=== PATIENT | female | born 1985 | race Caucasian/White ===

== ENCOUNTER 2018-02-08 15:52 | Emergency (ER) | payer MEDICAID ==
[~2018-02-08] VITALS: Ht 165.1 cm; Wt 48.1 kg
[2018-02-08 16:19] VITALS: BP 115/74
[2018-02-08] MEDS ORDERED: AZIT-57 PO (16:35)
== END 2018-02-08 16:43 | disposition home or self-care (01) ==
LOC: ER 15:53
DX: H92.02 Otalgia, left ear (principal); J02.9 Acute pharyngitis, unspecified; F12.10 Cannabis abuse, uncomplicated
CPT/HCPCS: 99283

== ENCOUNTER 2021-01-07 12:16 | Emergency (ER) | payer MEDICAID, OTHER ==
[~2021-01-07] VITALS: Ht 167.6 cm; Wt 47.7 kg
[2021-01-07] MEDS ORDERED: dexamethasone sod phosphate 10mg/ml inj IV STA (12:31)
[2021-01-07] MEDS ORDERED: metoclopramide 5 mg/ml inj IV ONE (12:35)
[2021-01-07] MEDS ORDERED: LORazepam 2 mg/ml vial IV ONE (12:35)
[2021-01-07] MEDS ORDERED: normal saline 1000ML IV soln IVB ONE (12:35)
[2021-01-07] MEDS ORDERED: ketorolac trometh. 30mg/ml inj. IV ONE (13:00)
[2021-01-07] MEDS ORDERED: CYCL-1 PO (13:21)
[2021-01-07] MEDS ORDERED: ONDA4TAB6 PO (13:21)
[2021-01-07 14:25] VITALS: BP 122/54
== END 2021-01-07 14:27 | disposition home or self-care (01) ==
LOC: ER 12:16
DX: S13.4XXA Sprain of ligaments of cervical spine, initial encounter (principal); F07.81 Postconcussional syndrome; G43.909 Migraine, unspecified, not intractable, without status migrainosus; H57.11 Ocular pain, right eye; F12.90 Cannabis use, unspecified, uncomplicated; Z87.440 Personal history of urinary (tract) infections; Z79.899 Other long term (current) drug therapy; V87.7XXA Person injured in collision between other specified motor vehicles (traffic), initial encounter; Y93.89 Activity, other specified; Y92.89 Other specified places as the place of occurrence of the external cause; Y99.8 Other external cause status
CPT/HCPCS: 70450; 96361; 96374; 96375; 99284; J1100; J1885; J2060; J2765; J7030

== ENCOUNTER 2021-02-15 16:10 | Emergency (ER) | payer BC, OTHER ==
[~2021-02-15] VITALS: Ht 167.6 cm; Wt 47.7 kg
[~2021-02-15 16:10] MED LIST: CYCL-1 PO; ONDA4TAB6 PO
[2021-02-15] MEDS ORDERED: ondansetron 4mg rapidly disintigrating tab PO ONE (16:55)
[2021-02-15] MEDS ORDERED: lactulose 20gm/30ml cup PO ONE (16:55)
[2021-02-15] MEDS ORDERED: magnesium citrate 296ml oral solution PO ONE (16:55)
[2021-02-15 17:18] LABS: BASOPHILS # (AUTO) 0.1 X10'3 (0-0.2); BASOPHILS % (AUTO) 0.9 % (0-1); EOSINOPHILS # (AUTO) 0.2 X10'3 (0-0.9); EOSINOPHILS % (AUTO) 3.8 % (0-6); HEMATOCRIT 36.4 % (35.0-45.0); HEMOGLOBIN 12.1 g/dl (12.0-16.0); LYMPHOCYTES % (AUTO) 31.7 % (21-51); MEAN CORPUSCULAR HEMOGLOBIN 29.3 PG (27.0-31.0); MEAN CORPUSCULAR HGB CONC 33.1 g/dL (33.0-36.5); MEAN CORPUSCULAR VOLUME 88.4 FL (78-98); MEAN PLATELET VOLUME 8.5 FL (7.4-10.4); MONOCYTES # (AUTO) 0.5 X10'3 (0-0.9); MONOCYTES % (AUTO) 7.8 % (2-12); NEUTROPHILS # (AUTO) 3.5 X10'3 (1.8-7.7); NEUTROPHILS % (AUTO) 55.8 % (42-75); PLATELET COUNT 216 X10'3 (140-440); RED BLOOD COUNT 4.12 X10'6 (4.20-5.60); RED CELL DISTRIBUTION WIDTH 13.6 % (11.5-14.5); WHITE BLOOD COUNT 6.2 X10'3 (4.5-11.0)
[2021-02-15 17:26] LABS: ALANINE AMINOTRANSFERASE 21 U/L (12-78); ALBUMIN 4.4 G/DL (3.4-5.0); ALBUMIN/GLOBULIN RATIO 1.3 (1.1-1.5); ALKALINE PHOSPHATASE 51 IU/L (46-116); ANION GAP 10 (8-16); ASPARTATE AMINO TRANSFERASE 10 U/L (10-37); BILIRUBIN,TOTAL 0.3 MG/DL (0.1-1.0); BLOOD UREA NITROGEN 12 MG/DL (7-18); BUN/CREATININE RATIO 14.8 (6.6-38.0); CALCIUM 9.2 MG/DL (8.5-10.1); CHLORIDE 104 MMOL/L (99-107); CREATININE 0.81 MG/DL (0.40-0.90); GLUCOSE 93 MG/DL (70-104); LIPASE 118 U/L (73-393); POTASSIUM 3.6 MMOL/L (3.5-5.1); SODIUM 141 MMOL/L (135-145); TOTAL CARBON DIOXIDE 27.4 MMOL/L (24-32); TOTAL PROTEIN 7.8 G/DL (6.4-8.2); eGFR 80 ML/MIN
[2021-02-15 17:51] LABS: CLARITY,URINE CLEAR (Clear); COLOR,URINE YELLOW (Yellow); GLUCOSE, URINE NEGATIVE (Neg); KETONES,URINE NEGATIVE (Neg); LEUKOCYTE ESTERASE ,URINE NEGATIVE (Neg); NITRITES, URINE NEGATIVE (Neg); OCCULT BLOOD,URINE NEGATIVE (Neg); PH,URINE 6.5 (4.8-8.0); PROTEIN,URINE NEGATIVE (Neg); URINE HCG NEGATIVE (NEG); UROBILINOGEN,URINE 0.2 E.U/dL (0.2-1.0)
[2021-02-15 17:56] LABS: UA COLLECTION TYPE CLN CATCH MIDSTREAM
--- NOTE | 2021-02-15 18:20 | NUR ---
PT BACK FROM CT. PT REFUSING AT THIS TIME TO TAKE MEDICATIONS. PT FEELS THAT SHE HAS A CYST ON LEFT OVARY PER PCP SACHIN MATTA YESTERDAY.
[2021-02-15] MEDS ORDERED: POLY17PO10 PO (18:47)
[2021-02-15 19:00] VITALS: BP 113/70
== END 2021-02-15 19:02 | disposition home or self-care (01) ==
LOC: ER 16:10
DX: K59.00 Constipation, unspecified (principal); R10.32 Left lower quadrant pain; N93.9 Abnormal uterine and vaginal bleeding, unspecified; G43.909 Migraine, unspecified, not intractable, without status migrainosus; F41.9 Anxiety disorder, unspecified; F12.90 Cannabis use, unspecified, uncomplicated; Z79.899 Other long term (current) drug therapy
CPT/HCPCS: 36415; 74176; 80053; 81003; 81025; 83690; 85025; 99284

== ENCOUNTER 2021-08-01 17:01 | Emergency (ER) | payer BC, MEDICAID ==
[~2021-08-01] VITALS: Ht 165.1 cm; Wt 45.5 kg
[2021-08-01 18:25] LABS: CLARITY,URINE SLIGHTLY CLOUDY (Clear); COLOR,URINE YELLOW (Yellow); UA COLLECTION TYPE CLN CATCH MIDSTREAM; URINE HCG NEGATIVE (NEG)
[2021-08-01 18:26] LABS: GLUCOSE, URINE NEGATIVE (Neg); KETONES,URINE NEGATIVE (Neg); LEUKOCYTE ESTERASE ,URINE NEGATIVE (Neg); NITRITES, URINE NEGATIVE (Neg); OCCULT BLOOD,URINE NEGATIVE (Neg); PROTEIN,URINE NEGATIVE (Neg); UROBILINOGEN,URINE 0.2 E.U/dL (0.2-1.0)
[2021-08-01 18:28] LABS: MUCUS STRANDS MANY /LPF (Neg); SQUAMOUS EPITHELIAL CELL,UR MANY /LPF (FEW)
[2021-08-01 18:29] LABS: BACTERIA,URINE FEW /HPF (Neg); RBC,URINE NONE SEEN /HPF (0-2); WBC,URINE 0-4 /HPF (0-4)
--- NOTE | 2021-08-01 18:52 | NUR ---
AT BEDSIDE WITH [employer]EL[employer]OPE OPERATOR FOR PELVIC EXAM.
[2021-08-01 19:15] VITALS: BP 119/86
== END 2021-08-01 19:16 | disposition home or self-care (01) ==
LOC: ER 17:01
DX: R10.32 Left lower quadrant pain (principal); K59.00 Constipation, unspecified; G43.909 Migraine, unspecified, not intractable, without status migrainosus; F41.9 Anxiety disorder, unspecified; F12.90 Cannabis use, unspecified, uncomplicated; Z87.440 Personal history of urinary (tract) infections; Z98.890 Other specified postprocedural states; Z79.899 Other long term (current) drug therapy
CPT/HCPCS: 81001; 81025; 99284

== ENCOUNTER 2021-09-28 08:21 | Emergency (ER) | payer MEDICAID, OTHER ==
[~2021-09-28] VITALS: Ht 165.1 cm; Wt 47.7 kg
[2021-09-28 08:32] VITALS: BP 128/56
[2021-09-28 09:08] LABS: URINE HCG NEGATIVE (NEG)
[2021-09-28 09:09] LABS: CLARITY,URINE CLEAR (Clear); COLOR,URINE STRAW (Yellow); GLUCOSE, URINE NEGATIVE (Neg); KETONES,URINE NEGATIVE (Neg); LEUKOCYTE ESTERASE ,URINE NEGATIVE (Neg); NITRITES, URINE NEGATIVE (Neg); OCCULT BLOOD,URINE NEGATIVE (Neg); PH,URINE 6.5 (4.8-8.0); PROTEIN,URINE NEGATIVE (Neg); UA COLLECTION TYPE CLN CATCH MIDSTREAM; UROBILINOGEN,URINE 0.2 E.U/dL (0.2-1.0)
[2021-09-28] MEDS ORDERED: acetaminophen 325mg tablet PO ONE (09:10)
[2021-09-28] MEDS ORDERED: ondansetron 4mg rapidly disintigrating tab PO ONE (09:10)
[2021-09-28] MEDS ORDERED: ketorolac trometh inj. 60 MG/2 ML VIAL IM ONE (09:10)
--- NOTE | 2021-09-28 10:00 | NUR ---
PATIENT REFUSES TO HAVE LABWORK DRAWN AND PREFERS TO BE DISCHARGED AT THIS TIME.
== END 2021-09-28 10:14 | disposition home or self-care (01) ==
LOC: ER 08:22
DX: R30.0 Dysuria (principal); R30.9 Painful micturition, unspecified; G43.909 Migraine, unspecified, not intractable, without status migrainosus; F41.9 Anxiety disorder, unspecified; F12.90 Cannabis use, unspecified, uncomplicated; Z87.440 Personal history of urinary (tract) infections; Z98.890 Other specified postprocedural states; Z79.899 Other long term (current) drug therapy
CPT/HCPCS: 81003; 81025; 96372; 99283; J1885

== ENCOUNTER 2021-12-24 08:05 | Emergency (ER) | payer MEDICAID ==
[~2021-12-24] VITALS: Ht 167.6 cm; Wt 45.5 kg
[2021-12-24 08:09] VITALS: BP 111/58
[2021-12-24] MEDS ORDERED: proCHLORperazine 10 MG/2 ml inj IV ONE (09:20)
[2021-12-24] MEDS ORDERED: diphenhydrAMINE 50 mg/ml inj IV ONE (09:20)
[2021-12-24] MEDS ORDERED: ketorolac trometh. 30mg/ml inj. IV ONE (09:20)
[2021-12-24] MEDS ORDERED: normal saline 1000ML IV soln IVB ONE (09:20)
[2021-12-24] MEDS ORDERED: ketorolac tromethamine 15mg/ml inj. IV ONE (09:25)
== END 2021-12-24 10:55 | disposition home or self-care (01) ==
LOC: ER 08:06
DX: G43.909 Migraine, unspecified, not intractable, without status migrainosus (principal); R11.0 Nausea; F41.9 Anxiety disorder, unspecified; F12.90 Cannabis use, unspecified, uncomplicated; Z87.440 Personal history of urinary (tract) infections; Z98.890 Other specified postprocedural states; Z79.899 Other long term (current) drug therapy
CPT/HCPCS: 96361; 96374; 96375; 99284; J0780; J1200; J1885; J7030

== ENCOUNTER 2022-01-03 15:03 | Emergency (ER) | payer MEDICAID ==
[~2022-01-03] VITALS: Ht 165.1 cm; Wt 47.0 kg
[2022-01-03 15:13] VITALS: BP 129/85
[2022-01-03] MEDS ORDERED: LORazepam 2 mg/ml vial IM ONE (15:30)
[2022-01-03] MEDS ORDERED: SUMAtriptan succ. 6 MG/0.5ml vial SQ ONE (16:30)
[2022-01-03] MEDS ORDERED: ondansetron 4mg rapidly disintigrating tab PO ONE (16:30)
[2022-01-03] MEDS ORDERED: ketorolac trometh inj. 60 MG/2 ML VIAL IM ONE (16:30)
[2022-01-03] MEDS ORDERED: ketorolac tromethamine 15mg/ml inj. IM ONE (16:35)
== END 2022-01-03 17:56 | disposition home or self-care (01) ==
LOC: ER 15:04
DX: G43.909 Migraine, unspecified, not intractable, without status migrainosus (principal); F41.9 Anxiety disorder, unspecified; Z87.448 Personal history of other diseases of urinary system
CPT/HCPCS: 96372; 99284; J1885; J2060; J3030

== ENCOUNTER 2023-12-24 08:04 | Emergency (ER) | payer MEDICAID ==
[~2023-12-24] VITALS: Ht 166.4 cm; Wt 52.2 kg
[2023-12-24 08:43] LABS: URINE HCG NEGATIVE (NEG)
[2023-12-24 08:50] LABS: BILIRUBIN,URINE NEGATIVE (Neg); CLARITY,URINE CLOUDY (Clear); COLOR,URINE YELLOW (Yellow); GLUCOSE, URINE NEGATIVE (Neg); KETONES,URINE NEGATIVE (Neg); LEUKOCYTE ESTERASE ,URINE NEGATIVE (Neg); NITRITES, URINE NEGATIVE (Neg); OCCULT BLOOD,URINE TRACE-INTACT (Neg); PROTEIN,URINE NEGATIVE (Neg); UROBILINOGEN,URINE 0.2 E.U/dL (0.2-1.0)
[2023-12-24 09:11] LABS: BASOPHILS # (AUTO) 0.1 X10'3 (0-0.2); BASOPHILS % (AUTO) 1.1 % (0-1); EOSINOPHILS # (AUTO) 0.1 X10'3 (0-0.9); EOSINOPHILS % (AUTO) 2.6 % (0-6); HEMATOCRIT 38.5 % (35.0-45.0); HEMOGLOBIN 12.8 g/dl (12.0-16.0); LYMPHOCYTES # (AUTO) 1.8 X10'3 (1.1-4.8); LYMPHOCYTES % (AUTO) 32.3 % (21-51); MEAN CORPUSCULAR HEMOGLOBIN 30.1 PG (27.0-31.0); MEAN CORPUSCULAR HGB CONC 33.1 g/dL (33.0-36.5); MEAN CORPUSCULAR VOLUME 90.9 FL (78-98); MEAN PLATELET VOLUME 8.5 FL (7.4-10.4); MONOCYTES # (AUTO) 0.4 X10'3 (0-0.9); MONOCYTES % (AUTO) 7.7 % (2-12); NEUTROPHILS # (AUTO) 3.2 X10'3 (1.8-7.7); NEUTROPHILS % (AUTO) 56.3 % (42-75); PLATELET COUNT 256 X10'3 (140-440); RED BLOOD COUNT 4.24 X10'6 (4.20-5.60); RED CELL DISTRIBUTION WIDTH 13.3 % (11.5-14.5); WHITE BLOOD COUNT 5.7 X10'3 (4.5-11.0)
[2023-12-24 09:29] LABS: UA COLLECTION TYPE CLN CATCH MIDSTREAM
[2023-12-24 09:30] LABS: SQUAMOUS EPITHELIAL CELL,UR MANY /LPF (FEW)
[2023-12-24 09:31] LABS: BACTERIA,URINE 1+ /HPF (Neg); RBC,URINE 0-2 /HPF (0-2)
[2023-12-24 10:17] LABS: ALBUMIN 4.2 G/DL (3.4-5.0); CALCIUM 8.9 MG/DL (8.5-10.1); LIPASE 42 U/L (16-77); TOTAL CARBON DIOXIDE 24.7 MMOL/L (24-32)
[2023-12-24 10:23] LABS: ANION GAP 11 (8-16); BLOOD UREA NITROGEN 10 MG/DL (7-18); BUN/CREATININE RATIO 12.2 (10.0-20.0); CHLORIDE 102 MMOL/L (99-107); CREATININE 0.82 MG/DL (0.40-0.90); GLUCOSE 95 MG/DL (70-104); POTASSIUM 3.8 MMOL/L (3.5-5.1); SODIUM 138 MMOL/L (135-145); eCRCL 76 ML/MIN; eGFR 78 ML/MIN
[2023-12-24] MEDS: normal saline 1000ML IV soln IVB ONE (10:50)
[2023-12-24] MEDS: CefTRIAXone 2gm/D5W 50ml BAG 50 ML IV ONE (11:35)
[2023-12-24] MEDS: ondansetron/PF 4mg/2ml inj IV ONE (11:36)
[2023-12-24] MEDS: HYDROmorphone 1 mg/ml syringe IV ONE ×2 (11:36→15:01)
[2023-12-24] MEDS ORDERED: iohexol 300mg/ml 100ml inj. ONE (11:44)
[2023-12-24 11:55] VITALS: TEMP 98.3
[2023-12-24] MEDS ORDERED: NAPR-56 PO (14:36)
[2023-12-24] MEDS ORDERED: CEPH-585 PO (15:36)
[2023-12-24 15:40] VITALS: BP 104/81; PULSE 69; RESP 17; O2SAT 97
== END 2023-12-24 15:35 | disposition home or self-care (01) ==
LOC: ER 08:05
DX: N83.8 Other noninflammatory disorders of ovary, fallopian tube and broad ligament (principal); N39.0 Urinary tract infection, site not specified; F41.9 Anxiety disorder, unspecified; F12.90 Cannabis use, unspecified, uncomplicated
CPT/HCPCS: 36415; 71045; 74177; 80048; 81001; 81025; 83605; 83690; 83735; 84145; 85025; 87040; 96361; 96365; 96375; 96376; 99285; J0696; J1170; J2405; J3490; J7030; Q9967

== ENCOUNTER 2024-03-15 14:32 | Outpatient (CLI) | payer MEDICAID | END 2024-03-15 23:59 | disposition home or self-care (01) | LOC: RAD 14:32 | PROVIDERS: ATTEND Registered Nurse | DX: N83.291 Other ovarian cyst, right side (principal); N83.292 Other ovarian cyst, left side; R10.2 Pelvic and perineal pain | CPT/HCPCS: 76830; 76856; 93976 ==

== ENCOUNTER 2025-01-17 05:48 | Emergency (ER) | payer MEDICAID ==
[~2025-01-17] VITALS: Ht 165.1 cm; Wt 57.2 kg
[2025-01-17] MEDS: ketorolac trometh 15mg/ml vial 15 MG/ML ML IM ONE (06:27)
[2025-01-17 06:50] VITALS: BP 119/76; PULSE 75; RESP 14; TEMP 98; O2SAT 99
== END 2025-01-17 06:55 | disposition home or self-care (01) ==
LOC: ER 05:48
DX: S90.32XA Contusion of left foot, initial encounter (principal); W20.8XXA Other cause of strike by thrown, projected or falling object, initial encounter; Y93.89 Activity, other specified; Y92.89 Other specified places as the place of occurrence of the external cause; Y99.8 Other external cause status
CPT/HCPCS: 73660; 96372; 99283; J1885